=== PATIENT | male | born 1990 | race Caucasian/White ===

== ENCOUNTER 2020-08-17 17:42 | Emergency (ER) | payer OTHER ==
[~2020-08-17 17:42] MED LIST: DOCUSATE SODIU250 MG PO; ECOTRIN81 MG PO; PERCOCET 7.5-31 EACH PO; ZOFRAN4 MG PO
[2020-08-17 21:04] LABS: HEMOGLOBIN 15.8 gm/dl (14.0-17.5); RED BLOOD COUNT 5.53 M/UL (4.20-5.50); WHITE BLOOD COUNT 4.9 K/UL (4.5-11.0)
[2020-08-17 21:23] LABS: BUN/CREATININE RATIO 13 (0-10)
[2020-08-17] MEDS ORDERED: DOXYCYCLINE HY100 MG PO (22:40)
== END 2020-08-17 22:59 | disposition home or self-care (01) ==
LOC: ER1 17:42
PROVIDERS: Emergency Medicine
DX: U07.1 COVID-19 (principal); J12.82 Pneumonia due to coronavirus disease 2019
CPT/HCPCS: 36600; 71045; 80053; 82550; 82553; 82803; 83605; 83874; 84484; 85025; 93005; 99285